=== PATIENT | male | born 2000 | race Two or more races ===

== ENCOUNTER 2019-12-27 18:15 | Emergency (ER) | payer OTHER ==
[~2019-12-27] VITALS: Ht 172.7 cm; Wt 77.5 kg
--- NOTE | 2019-12-27 19:50 | NUR ---
PT TO ROOM 10 PEDIS WITH SPOUSE. PT PRESENTS TO THE ED TONIGHT WITH C/O LEFT ANKLE PAIN AND SWELLING, BRUISING AND PAIN TO RIGHT ZEE, AND BRUISING TO LEFT ZEE. 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 PT SLIPPED OFF LADDER, AND TURNED AND FORCED HIMSELF TO LAND ON A WOODEN LEDGE THAT WAS ABOUT 10 FEET FROM WHERE HE WAS. PT EXPERIENCED PAIN IN HIS LEFT ANKLE, RIGHT AND LEFT SHINS. PT WAS SENT HOME ON THURSDAY, BUT DID NOT SEEK ANY MEDICAL ATTENTION UNTIL [facility]. PT WAS UNABLE TO WORK THURSDAY AND THURSDAY, AND NEEDS A WORK NOTE AFTER EXAMINATION.
--- NOTE | 2019-12-27 20:50 | NUR ---
Report received and care assumed. Pt resting with no needs expressed. Awaiting splint and crutches. Awaiting ERP recheck. Pt updated to POC. Call light in reach.
[2019-12-27 21:28] VITALS: BP 122/44
== END 2019-12-27 21:31 | disposition home or self-care (01) ==
LOC: ED 21:25
DX: S82.62XA Displaced fracture of lateral malleolus of left fibula, initial encounter for closed fracture (principal); M25.571 Pain in right ankle and joints of right foot; W11.XXXA Fall on and from ladder, initial encounter; Y93.89 Activity, other specified; Y92.89 Other specified places as the place of occurrence of the external cause; Y99.0 Civilian activity done for income or pay
CPT/HCPCS: 29515; 99284